=== PATIENT | female | born 1955 | race Caucasian/White ===

== ENCOUNTER 2018-08-23 20:17 | Emergency (ER) | payer OTHER ==
[~2018-08-23] VITALS: Ht 167.6 cm; Wt 81.6 kg
[2018-08-23 21:10] VITALS: BP 153/75
[2018-08-23] MEDS ORDERED: HYDR-2765 PO (22:39)
--- NOTE | 2018-08-23 22:40 | PHYS DOC ---
Past Medical History Past Medical History: No Pertinent History (JANE GRIFFIN APRN) Past Surgical History: Hysterectomy, Oophorectomy (JANE GRIFFIN APRN) Alcohol Use: None Drug Use: None (JANE GRIFFIN APRN) Adult General Chief Complaint Chief Complaint: UPPER EXTREMITY PAIN HPI HPI Patient is a 63 year old female who presents with swelling, bruising and pain to her left upper extremity. The patient states that she was at work yesterday when her pain leg caught on a workstation causing her to pitch forward and fall. She states that it happened very fast but she thinks she put her arm out to catch herself. She states that the swelling and pain and increased overnight. She denies loss of consciousness or other injury. (JANE GRIFFIN APRN) Review of Systems Review of Systems Constitutional: Denies fever or chills [] Respiratory: Denies cough or shortness of breath [] Cardiovascular: No additional information not addressed in HPI [] GI: Denies abdominal pain, nausea, vomiting, bloody stools or diarrhea [] : Denies dysuria or hematuria [] Musculoskeletal: See history of present illness Neurologic: Denies headache, focal weakness or sensory changes [] Endocrine: Denies polyuria or polydipsia [] All other systems were reviewed and found to be within normal limits, except as documented in this note. (JANE GRIFFIN APRN) Allergies Allergies Allergies Coded Allergies Type Severity Reaction Last Updated Verified Penicillins Allergy Intermediate HIVES 08/23/18 Yes amoxicillin Allergy Intermediate HIVES 08/23/18 Yes (PEDRO ROMERO MD) Physical Exam Physical Exam Constitutional: Well developed, well nourished, no acute distress, non-toxic appearance. [] Cardiovascular:Heart rate regular rhythm, no murmur [] Lungs & Thorax: Bilateral breath sounds clear to auscultation [] Abdomen: Bowel sounds normal, soft, no tenderness, no masses, no pulsatile masses. [] Skin: Warm, dry, no erythema, no rash. [] Back: No tenderness, no CVA tenderness. [] Extremities: tenderness to left forearm and wrist with ecchymosis noted, no cyanosis, no clubbing, ROM decreased due to pain and edema, pulses and sensation are intact. [] Neurologic: Alert and oriented X 3, normal motor function, normal sensory function, no focal deficits noted. [] Psychologic: Affect normal, judgement normal, mood normal. [] (JANE GRIFFIN APRN) Current Patient Data Vital Signs Vital Signs Date Time Temp Pulse Resp B/P (MAP) Pulse Ox O2 Delivery O2 Flow Rate FiO2 08/23/18 21:10 98.7 74 18 153/75 (101) 96 Room Air 98.7 (PEDRO ROMERO MD) EKG EKG [] (JANE GRIFFIN APRN) Radiology/Procedures Radiology/Procedures []There is a third metacarpal fracture to the base as well as a distal radial fracture. This x-ray was over read by Dr. Romero in the emergency department. (JANE GRIFFIN APRN) Course & Med Decision Making Course & Med Decision Making Pertinent Labs and Imaging studies reviewed. (See chart for details) []The patient was placed in a Velcro splint. She is to follow-up with Dr. Quigley for further evaluation and treatment of her fractures. She was given a small amount of pain medication. She is in agreement with this plan. (JANE GRIFFIN APRN) Course & Med Decision Making Staff Physician Addendum: I was working in the ER during the course of this patient's visit. I was available for consultation as needed, but I was not directly involved in the care of this patient. (PEDRO ROMERO MD) Dragon Disclaimer Dragon Disclaimer This electronic medical record was generated, in whole or in part, using a voice recognition dictation system. (JANE GRIFFIN APRN) Departure Departure Impression: Primary Impression: Fracture of radius Additional Impression: Metacarpal bone fracture Disposition: 01 HOME, SELF-CARE Condition: STABLE Referrals: ALISSON ROLLINS MD (PCP) JAMES QUIGLEY MD Patient Instructions: Forearm Fracture, [id number] Additional Instructions: Follow-up with orthopedics for further evaluation and management of your fractures. Take the medication as directed. Do not drive or operate heavy machinery while taking pain medication. If worsening return to the emergency department. Scripts Hydrocodone Bit/Acetaminophen (HYDROCODONE-APAP 7.5-325 ) 1 Tab Tablet 1 TAB PO PRN Q6HRS PRN for PAIN, #20 TAB 0 Refills Prov: JAEN GRIFFIN APRN 08/23/18 Problem Qualifiers JANE GRIFFIN APRN Aug 23, 2018 22:40 PEDRO ROMERO MD Aug 24, 2018 04:45
--- NOTE | 2018-08-23 23:39 | RAD ---
Indication: Left wrist pain after fall one day ago TECHNIQUE: 3 views of the left wrist COMPARISON: None Findings/ impression: Comminuted fracture is seen of the distal radius with extension to the radiocarpal joint and radioulnar joint. No significant angulation. Moderate wrist swelling. Diffuse osteopenia. Electronically signed by: Magnus Escamilla DO (08/23/2018 11:36 PM) [facility]
--- NOTE | 2018-08-23 23:40 | RAD ---
Indication:LEFT HAND PAIN, SWELLING AFTER FALL X1 DAY AGO TECHNIQUE: 3 views of left hand COMPARISON:None FINDINGS/ impression: No acute fracture or dislocation of the hand bones. Electronically signed by: Magnus Escamilla DO (08/23/2018 11:37 PM) [facility]
--- NOTE | 2018-08-23 23:42 | RAD ---
Indication: Left arm pain after fall one day ago TECHNIQUE: 2 views of the left forearm COMPARISON: None Findings/ impression: Comminuted fracture of the distal radius with extension to the radiocarpal and radioulnar joint with no significant angulation. Mild to moderate wrist swelling. Electronically signed by: Magnus Escamilla DO (08/23/2018 11:38 PM) [facility]
== END 2018-08-23 22:50 | disposition home or self-care (01) ==
LOC: ER 20:17
DX: S52.502A Unspecified fracture of the lower end of left radius, initial encounter for closed fracture (principal); S62.313A Displaced fracture of base of third metacarpal bone, left hand, initial encounter for closed fracture; Z88.0 Allergy status to penicillin; Z88.1 Allergy status to other antibiotic agents; W18.39XA Other fall on same level, initial encounter; Y93.89 Activity, other specified; Y92.69 Other specified industrial and construction area as the place of occurrence of the external cause; Y99.8 Other external cause status
CPT/HCPCS: 29125; 73090; 73110; 73130; 99283

== ENCOUNTER → 2019-02-17 | Outpatient (CLI) | payer OTHER ==
[~2019-02-17] MED LIST: HYDR-2765 PO
--- NOTE | 2019-02-17 11:08 | RAD ---
STUDY: MRI of the left wrist without contrast INDICATION: Persistent wrist pain after a fall approximately one year prior COMPARISON: Most recent wrist radiographs from 12/20/2018. TECHNIQUE: Multiplanar MR imaging of the left wrist performed without the use of intravenous or intra-articular contrast. FINDINGS: The study is degraded by motion artifact. Bones/cartilage: Chronic deformity of the distal radius with resultant dorsal tilting of the radial articular surface as well as articular surface incongruity. 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 Multifocal degenerative changes elsewhere with some degenerative cystic change such as at the dorsal aspect of the lunate. Borderline widening scapholunate interval measuring just at 3 mm. The scapholunate angle measures 76 degrees. Ligaments: Disruption of the membranous component of the scapholunate ligament. The dorsal and volar bands appear to remain intact with the dorsal band seen on image 12 series 10 and the volar band on image 21 series 11. The lunotriquetral ligaments are intact. Musculotendinous: The flexor tendons are intact and without tenosynovitis. No advanced tendinosis or focal disruption of the extensor tendons. Mild subluxation of the extensor carpi ulnaris from the ulnar groove, image 14 series 5, without findings to suggest acute injury to the subsheath. TFCC: The radial attachment of the TFCC is intact. The articular disc component is mildly thickened but without discrete tear/perforation. The styloid and foveal attachments of the TFCC are not well visualized and suspected at least partially torn. Miscellaneous: Mild wrist synovitis. Small distal radioulnar joint effusion. The median nerve is unremarkable. IMPRESSION: 1. The study is significantly degraded by motion artifact, particularly the sagittal fat saturated sequences. 2. Chronic distal radius fracture deformity with resultant articular surface irregularity, dorsal angulation across the radial articular surface and radiocarpal posttraumatic arthrosis. Scattered degenerative changes seen elsewhere about the wrist as well as at the first CMC joint. 3. The scapholunate angle is increased however there is no overt widening across the scapholunate interval or definite disruption of the dorsal or volar bands. There is perforation of the membranous component which is not atypical given patient age. The lunotriquetral ligaments are intact. 4. Though degraded by motion artifact, there appears to be at least partial tearing of the TFC styloid and foveal attachments without discrete defect of the articular disc or radial attachment. 5. Mild ECU tendon subluxation out of the ulnar groove without findings to suggest acute subsheath injury. 6. Mild wrist synovitis as well as a small distal radioulnar joint effusion. Electronically signed by: REMBERTO GONZALEZ MD (02/17/2019 11:05 AM) [id number]
== END | disposition home or self-care (01) ==
LOC: MRI 08:23
PROVIDERS: ATTEND Orthopaedic Surgery
DX: S52.572A Other intraarticular fracture of lower end of left radius, initial encounter for closed fracture (principal); S63.592A Other specified sprain of left wrist, initial encounter; S63.072A Subluxation of distal end of left ulna, initial encounter; M65.88 Other synovitis and tenosynovitis, other site; M25.432 Effusion, left wrist; M19.032 Primary osteoarthritis, left wrist; X58.XXXA Exposure to other specified factors, initial encounter; Y93.89 Activity, other specified; Y92.89 Other specified places as the place of occurrence of the external cause; Y99.8 Other external cause status
CPT/HCPCS: 73221